=== PATIENT | female | born 1960 | race Caucasian/White ===

== ENCOUNTER → 2017-03-07 | Outpatient (CLI) | payer BC ==
[~2017-03-07] MED LIST: ALEVE220 M1 PO; ASPIRIN325 PO; FISH OIL 1,001000 M2 PO; HYDROCODON-ACE1 EAC7 PO; LEVOTHYROXIN0.025 MG PO; LIORESAL 10 MG10 MG PO; LORTAB 5-500 T1 EAC1 PO; MOBIC7.5 MG PO; NABUMETONE 500500 M1 PO; NAPROSYN500 MG PO; NOHOMEMEDICATIONS; OXYIR5 MG PO; TRAMADOL 50 MG50 MG PO; VALIUM5 MG PO
== END ==
LOC: RAD 08:56
DX: R05 Cough (principal)

== ENCOUNTER → 2017-09-24 | Outpatient (CLI) | payer BC | LOC: RAD 03:12 | DX: Z12.31 Encounter for screening mammogram for malignant neoplasm of breast (principal) ==

== ENCOUNTER → 2018-09-28 | Outpatient (CLI) | payer BC | LOC: RAD 08:49 | DX: Z12.31 Encounter for screening mammogram for malignant neoplasm of breast (principal) ==

== ENCOUNTER → 2019-09-29 | Outpatient (CLI) | payer BC | LOC: RAD 08:34 | DX: Z12.31 Encounter for screening mammogram for malignant neoplasm of breast (principal) ==

== ENCOUNTER → 2020-10-02 | Outpatient (CLI) | payer BC | LOC: BC 08:48 | PROVIDERS: ATTEND Obstetrics & Gynecology | DX: Z12.31 Encounter for screening mammogram for malignant neoplasm of breast (principal) ==